=== PATIENT | female | born 1975 | race Caucasian/White ===

== ENCOUNTER 2017-08-09 13:02 | Emergency (ER) | payer SELFPAY ==
[2017-08-09] MEDS ORDERED: TORADOL PO (13:18)
[2017-08-09] MEDS ORDERED: MEDDOSEPAK PO (13:18)
[2017-08-09 13:23] VITALS: BP 132/77
== END 2017-08-09 13:23 | disposition home or self-care (01) | DRG 93 ==
LOC: ED 13:02
DX: G89.29 Other chronic pain (principal); M25.561 Pain in right knee; M25.562 Pain in left knee; M19.90 Unspecified osteoarthritis, unspecified site